=== PATIENT | female | born 1975 | race Caucasian/White ===

== ENCOUNTER → 2021-09-18 | Day surgery (SDC) | payer OTHER ==
[~2021-09-18] VITALS: Ht 162.6 cm; Wt 113.0 kg
[~2021-09-18] MED LIST: CITA10TA5 PO; IV RINGERS,LACTATED 1000ML 1,000 ML IV SCH; MELO7.5T29 PO; PROPOFOL 10 MG/ML (20ML) VIAL. IV ONE
[2021-09-18 09:31] VITALS: BP 135/72
[2021-09-18 11:04] VITALS: BP 101/62
--- NOTE | 2021-09-19 01:13 | CONS ---
DATE OF CONSULTATION: 09/18/2021 GASTROENTEROLOGY CONSULTATION REFERRING PHYSICIAN: Nathan Ibarra MD HISTORY OF PRESENT ILLNESS: A 46-year-old female whose past medical history is significant for recently diagnosed breast cancer, status post hysterectomy, osteoarthrosis, is seen for screening colon exam. Bowel habits are regular without diarrhea or constipation. There has been no melena or hematochezia. Family history is unrevealing for colon cancer. There has been no change in weight or appetite. She is otherwise without additional complaints. PAST MEDICAL HISTORY: History of recently diagnosed breast cancer, osteoarthrosis, status post hysterectomy. ALLERGIES: None. MEDICATIONS: Meloxicam and citalopram. SOCIAL HISTORY: Occasional drinker. Nonsmoker. FAMILY HISTORY: Noncontributory. REVIEW OF SYSTEMS: HEENT: There is no decreased hearing or visual acuity issues. CARDIAC: There is no history of hypertension, palpitations or syncope. PULMONARY: No shortness of breath, productive cough or asthma. RENAL: No dysuria, frequency or hematuria. MUSCULOSKELETAL: History of arthrosis. DERMATOLOGIC: No skin rashes or pruritus. HEMATOLOGY AND ONCOLOGY: History of recently diagnosed breast cancer. GASTROINTESTINAL: See history of present illness. PHYSICAL EXAMINATION: GENERAL: Reveals a well-nourished, well-developed female, who is alert and cooperative, in no acute distress. VITAL SIGNS: Pulse 70, respiratory rate is 15. LUNGS: Clear. CARDIOVASCULAR: Reveals an S1, S2, without S3, S4 or appreciable murmur. ABDOMEN: Reveals a soft abdomen, normal bowel sounds, without appreciable hepatosplenomegaly. EXTREMITIES: Reveals no cyanosis, clubbing or edema. IMPRESSION: Colorectal screening with recently diagnosed breast cancer is warranted. Risks and benefits of procedure including risk of hemorrhage and perforation requiring operation were discussed. The patient is willing to proceed at this time. I would like to thank Dr. Nathan Ibarra for allowing us to consult and participate in this patient's care. DRE/TAI DR: Tae TID: [id number]
== END | disposition home or self-care (01) ==
LOC: ENDOS 08:51
PROVIDERS: ATTEND Internal Medicine Gastroenterology
DX: Z12.11 Encounter for screening for malignant neoplasm of colon (principal); K64.0 First degree hemorrhoids; K63.89 Other specified diseases of intestine; M19.90 Unspecified osteoarthritis, unspecified site; F32.9 Major depressive disorder, single episode, unspecified; Z90.710 Acquired absence of both cervix and uterus; Z98.890 Other specified postprocedural states; Z85.3 Personal history of malignant neoplasm of breast; Z79.899 Other long term (current) drug therapy; Z20.822 Contact with and (suspected) exposure to COVID-19
CPT/HCPCS: 45378; 87426; J2704